=== PATIENT | female | born 1995 | race Caucasian/White ===

== ENCOUNTER 2023-03-08 04:01 | Emergency (ER) | payer MEDICAID ==
[~2023-03-08] VITALS: Ht 175.3 cm; Wt 95.0 kg
[2023-03-08 04:09] VITALS: BP 142/103; PULSE 100; RESP 20; TEMP 97.9; O2SAT 97
== END 2023-03-08 04:56 | disposition left against medical advice (07) ==
LOC: ER 04:01
DX: F22 Delusional disorders (principal); F41.9 Anxiety disorder, unspecified
CPT/HCPCS: 99283

== ENCOUNTER 2023-12-17 22:20 | Emergency (ER) | payer MEDICAID ==
[~2023-12-17] VITALS: Ht 172.7 cm; Wt 90.0 kg
[2023-12-17 22:26] VITALS: TEMP 98.2
[2023-12-17] MEDS ORDERED: P50 MT (22:52)
[2023-12-17] MEDS ORDERED: ALBU6.7H15 INH (22:52)
[2023-12-17] MEDS: DEXAMETHASONE 4MG/ML 1ML VIAL IM ONE (23:30)
[2023-12-18 00:04] VITALS: PULSE 96; RESP 16; O2SAT 98
[2023-12-18] MEDS: IPRATROPIUM BROMIDE (0.02%) 0.5MG/2.5ML NEB HHN STA (00:04)
[2023-12-18] MEDS: ALBUTEROL (0.083%) 2.5MG/3ML NEB HHN STA (00:04)
[2023-12-18 00:58] VITALS: BP 127/72; PULSE 81; RESP 18
== END 2023-12-18 01:10 | disposition home or self-care (01) ==
LOC: ER 22:20
DX: J45.901 Unspecified asthma with (acute) exacerbation (principal)
CPT/HCPCS: 94640; 96372; 99283; J1100; Z7610 ×3